=== PATIENT | male | born 1945 | race Caucasian/White ===

== ENCOUNTER 2025-07-26 09:31 | Outpatient (AMB) | payer MEDICARE, SELFPAY ==
--- NOTE | 2025-07-26 09:40 | A.PHYSOV ---
Vital Signs 07/26/25 09:41 Height 5 ft 9.5 in Weight 222 lb BMI 32.3 Intake Visit Reasons: 1M Intake Note: Patient is a 79 year old male in office for a 1 month visit on his neck and left shoulder pain. 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 The patient previously had excellent relief with C7 epidural injections, but the most recent procedure on March 20, 2025, provided very little benefit. The patient also has a history of left shoulder pain, for which past subacromial injections via a posterior approach did not provide relief. A left shoulder subacromial injection using an anterior approach on June 06, 2025, also did not significantly help the pain. The patient reports the pain is located at the point of the shoulder, sometimes extending slightly to the back. The pain is intermittent, occurring less than once or twice a day, but is very intense and can last for half an hour. Episodes are not related to movement or activity and can occur while resting. The patient is taking gabapentin, which prevents awakening from pain during the night. For acute pain episodes, the patient uses Tylenol and an ice pack. The patient has been using naproxen sparingly as advised and has a tramadol prescription from June 06, 2025, with some tablets remaining. The patient has been consistently taking a turmeric supplement. Pain Description - Location: Pain is located at the point of the left shoulder, with some radiation to the back. - Quality: The pain is described as very intense. - Frequency and Duration: The pain occurs intermittently, less than once or twice a day, and lasts for about half an hour per episode. - Exacerbating/Alleviating Factors: The pain is not related to movement or activity and can start while resting. - Associated Symptoms: At night, gabapentin prevents the patient from waking up due to pain. - Interventions: The patient uses Tylenol and an ice pack to alleviate the pain. - Prior Interventions: Recent cervical epidural and left shoulder subacromial injections provided little to no benefit. Results - Imaging: - A prior cervical spine MRI demonstrated neural foraminal stenosis at the C5-C6 and C6-C7 levels. [facility] Medical History (Updated 07/26/25 @ 11:54 by Rupesh Davila DO) Cervical radicular pain Left shoulder pain DJD of left shoulder Surgical History (Updated 07/26/25 @ 09:42 by Maria Fernanda Soria MA) LAP-BAND surgery status History of coronary artery stent placement Social History (Updated 07/22/25 @ 13:09 by Maria Fernanda Soria MA) Alcohol intake: current Alcohol intake frequency: holidays/special occasions only Patient Tobacco Use Status: Former Tobacco user Substance Use Type: Marijuana Current occupational status: unemployed Review of Systems Narrative Review of Systems - Musculoskeletal: Reports intermittent, intense pain at the point of the left shoulder, sometimes extending to the back. - Reports chronic neck pain. - Neurological: Reports cervical radiculitis. - Constitutional: Denies sleep disturbance from pain while taking gabapentin. Physical Exam Exam Exam: Physical Exam Patient appears to be in no acute distress, appropriately conversant and oriented. He ambulates without antalgia. Neurological examination of upper and lower extremities was nonfocal. Cervical range of motion was restricted and side bending, extension and rotation to the left. Spurling maneuver was negative. Lhermitte's sign was negative. Patient demonstrated no upper motor neuron signs. Neer sign was positive on the left side. Modified Witt maneuver was positive on the left side. Drop-arm test was negative. Shoulder apprehension test was negative. Vital Signs: BMI result Body Mass Index 32.3 Assessment & Plan Assessment & Plan (1) DJD of left shoulder: Code(s): M19.012 - Primary osteoarthritis, left shoulder Category: Medical Qualifiers: Osteoarthritis type: primary Qualified Code(s): M19.012 - Primary osteoarthritis, left shoulder (2) Left shoulder pain: Code(s): M25.512 - Pain in left shoulder Category: Medical Qualifiers: Chronicity: chronic Qualified Code(s): M25.512 - Pain in left shoulder; G89.29 - Other chronic pain (3) Cervical radicular pain: Code(s): M54.12 - Radiculopathy, cervical region Category: Medical Plan Pain Management - Analgesia: The patient reports intermittent, intense left shoulder pain despite prior injections. - Current Medications: The patient takes gabapentin for nocturnal pain, Tylenol as needed, and has used tramadol and naproxen sparingly. - Activities of Daily Living: Sleep is no longer interrupted by pain due to taking gabapentin. - Aberrant Drug-Related Behaviors: The patient has used tramadol sparingly, with tablets remaining from a prescription issued over a month ago. Plan Patient was informed and verbally consented to the use of an ambient scribe for clinic note documentation during this visit. 1. Chronic Left Shoulder Pain The patient continues to experience intermittent, intense left shoulder pain that has not responded to prior subacromial injections. The plan is to start topical Voltaren (diclofenac) gel three times a day and continue supplementation with turmeric 2000 mg daily, ensuring it contains black pepper. A prescription for tramadol will be refilled, with instructions written to allow for a larger quantity to be dispensed, though the patient is advised to continue using it sparingly. The patient will continue using Tylenol and ice packs as needed for acute pain. Follow-up is scheduled in 2-3 months. 2. Chronic Neck Pain With Cervical Radiculitis The patient has a history of chronic neck pain and cervical radiculitis secondary to neural foraminal stenosis, with nocturnal symptoms controlled by gabapentin. The plan is to continue gabapentin 100 mg, two tablets nightly. A prescription refill for gabapentin will be sent to the pharmacy. Follow-up will occur in 2-3 months to reassess symptoms. Discussion Notes I informed the patient that since the last shoulder injection provided little benefit, we would try a new approach. I recommended starting [id number] Voltaren gel, a topical anti-inflammatory, to be applied three times daily to the shoulder, and I advised the patient that a generic version (diclofenac gel) would be cheaper. We discussed continuing turmeric at a dose of 2000 mg daily, and I emphasized the importance of ensuring the supplement contains black pepper to aid absorption. I agreed to send refills for both tramadol and gabapentin. I explained that I would adjust the directions on the tramadol prescription to allow for a larger quantity to be dispensed, but that the patient should continue to use it sparingly as before. I expressed hope that with continued use of the topical gel and turmeric, future pain episodes may become less severe and resolve more quickly. We agreed on a follow-up appointment in 2-3 months. Patient Instructions - Continue taking your Turmeric supplement, 2000 mg per day. - Make sure the turmeric product you use contains black pepper. - Purchase Voltaren gel (or the generic version, diclofenac gel), which is available [id number] at the pharmacy. - Rub it on your shoulder where it hurts three times a day. - A refill for your pain medicine, Tramadol, will be sent to your pharmacy. - Continue to use it only as needed for severe pain. - A refill for your nerve medicine, Gabapentin, will be sent to your pharmacy. - Continue taking two capsules at night. - You can continue to use Tylenol and apply an ice pack for pain relief. - Schedule a follow-up appointment in two to three months. Medications: New tramadol Partial fill upon request 100 mg (2 x 50 mg) PO QID PRN 56 tabs 0RF pain M19.012 - Primary osteoarthritis, left shoulder, M25.512 - Pain in left shoulder, M54.12 - Radiculopathy, cervical region gabapentin 100 - 400 mg (1 - 4 x 100 mg) PO BEDTIME 120 caps 3RF Chronic pain 30 days M19.012 - Primary osteoarthritis, left shoulder, M25.512 - Pain in left shoulder, M54.12 - Radiculopathy, cervical region Coding Level of Care Code Est Pt Level 4 (13632) Complex visit Add On G2211 Diagnoses Primary osteoarthritis of left shoulder M19.012 Osteoarthritis type: primary Chronic left shoulder pain M25.512; G89.29 Chronicity: chronic Cervical radicular pain M54.12
[2025-07-26 09:41] VITALS: BMI 32.3
--- OUTSIDE RECORDS SUMMARY | 2025-07-26 10:38 | XMS_ITS | Clinical Summary ---
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 0 Active rosuvastatin (CRESTOR) tablet 10 mg Take 10 mg by mouth daily. 0 Active metFORMIN (GLUCOPHAGE) tablet 500 mg Take 500 mg by mouth 2 (two) times a day with meals. 0 Active chlorthalidone (HYGROTON) 25 MG tablet Take 25 mg by mouth daily. 0 Active omeprazole (PriLOSEC) 20 MG capsule Take 20 mg by mouth daily. 0 Active Multiple Vitamin (MULTI-VITAMINS PO) Take 1 tablet by mouth daily. 0 Active aspirin EC 81 MG tablet Take 81 mg by mouth daily. 0 Active glipiZIDE (GLUCOTROL) tablet 10 mg Take 10 mg by mouth 2 (two) times a day before breakfast and dinner. 0 Active Active Problems Problem Noted Date Diagnosed Date Cervical spinal stenosis 01/12/2021 Social History Tobacco Use Types Packs/Day Years Used Date Smoking Tobacco: Former Cigarettes Q uit: 01/09/1994 Smokeless Tobacco: Never Alcohol Use Standard Drinks/Week Comments Yes 0 (1 standard drink = 0.6 oz pur e alcohol) Sex and Gender Information Value Date Recorded Sex Assigned at Not on file Gender Identity Not on file Sexual Orientation Not on file Last Filed Vital Signs Vital Sign Reading Time Taken Comments Blood Pressure - - Pulse 70 01/11/2021 2:29 PM EDT Temperature - - Respiratory Rate - - Oxygen Saturation 95% 01/11/2021 2:29 PM EDT Inhaled Oxygen Concentration - - Weight 90.7 kg (200 lb) 01/09/2021 1:29 PM EDT Height 177.8 cm (5' 10 ) 01/09/2021 1:29 PM EDT Body Mass Index 28.7 01/09/2021 1:29 PM EDT Plan of Treatment Health Maintenance Due Date Last Done Comments Hepatitis C Screening 1945 COVID-19 Vaccine (#1) 06/29/1946 Depression Screening 1957 Preventative Health Evaluation 12/28/1965 Fall Risk Assessment 12/28/2012 Shingrix-Zoster Vaccine (2 of 2) 11/08/2020 09/13/2020 DTap / Tdap / Td (2 - Td or Tdap) 12/09/2021 12/10/2011 RSV Adult > 60+ Yrs or (1 - 1-dose 75+ series) 12/28/2022 Influenza Vaccine (#1) 2025 8, 06/10/2017, 06/06/2015, Additional history exists Pneumococcal Vaccine Completed 01/29/2015, 08/05/2013, 05/21/2004 Hepatitis B Vaccines Aged Out No long er eligible based on patient's age to complete this topic RSV Ped < 20 months Aged Out No longe r eligible based on patient's age to complete this topic
--- OUTSIDE RECORDS SUMMARY | 2025-07-26 10:38 | XMS_ITS ---
Author Name [facility] Organization Unknown Encounters Encounter Type Encounter Reason Primary Diagnosis Location Date Ambulatory [facility] 06/10/2024 Care Team Organization Name Specialty Phone Email Start Date End Da te [facility] [address] [facility] [place] [facility] 07/08/2022
--- OUTSIDE RECORDS SUMMARY | 2025-07-26 10:39 | XMS_ITS | Clinical Summary ---
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 023 Active blood-glucose meter (ACCU-CHEK BRITTANY PLUS METER [facility]) Use to check blood sugars three times a day 018 Active fluticasone propionate (FLONASE) 50 mcg/actuation nasal spray INHALE 1 SPRAY BY NASAL ROUTE DAILY. 013 Active multivitamin tablet 1 po qd Active NAPROXEN ORAL Take by mouth daily as needed. Active aspirin 81 mg EC tablet 1 TABLET DAILY Activ e cetirizine (ZyrTEC) 10 mg tablet 1 TABLET DAILY 007 Active ipratropium-alb uteroL (Combivent Respimat) 20-100 mcg/actuation inhalerIndicati ons:Chronic obstructive pulmonary disease, unspecified COPD type (CMS/HCC V24, CMS/HCC V28) Inhale 1 puff by mouth 4 (four) times a day. 3 g 4 025 2025 Active gabapentin (NEURONTIN) 100 mg capsule TAKE 1-4 TABLETS BY MOUTH EVERY NIGHT FOR 30 DAYS 025 Active blood sugar diagnostic ([employer] Verio test strips) test stripIndication s:Type 2 diabetes mellitus with diabetic neuropathy, unspecified ([facility] V24, [facility] V28) USE 1 STRIP TO TEST BLOOD 3 TIMES A DAY * NON INSULIN PER INSURANCE 100/90 DAYS 100 strip 5 025 Active glipiZIDE (GLUCOTROL XL) 10 mg 24 hr tablet Take 1 tablet (10 mg total) by mouth 1 (one) time each day. 90 tablet 1 025 Active metoprolol succinate (TOPROL-XL) 50 mg 24 hr tabletIndicatio ns:Pure hypercholestero lemia, unspecified Take 1 tablet (50 mg total) by mouth 1 (one) time each day. Do not crush or chew. 135 tablet 1 025 Active loperamide (IMODIUM) 2 mg capsule Take 1 capsule (2 mg total) by mouth 4 (four) times a day if needed for diarrhea. 30 capsule 1 025 Active umeclidinium (Incruse Ellipta) 62.5 mcg/actuation inhalation Inhale 1 puff by mouth 1 (one) time each day. 1 each 3 025 Active tiotropium (SPIRIVA) 18 mcg per inhalation capsule Place 1 capsule (18 mcg total) into inhaler and inhale 1 (one) time each day. 30 capsule 11 025 2025 Active Ozempic 0.25 mg or 0.5 mg (2 mg/3 mL) injection penIndications: Uncontrolled type 2 diabetes mellitus with hypoglycemia, unspecified hypoglycemia coma status ([facility] V24, [facility] V28) INJECT 0.25 MG SUBCUTANEOUSLY ONCE WEEKLY 3 mL 5 025 Active rosuvastatin (CRESTOR) 20 mg tablet TAKE 1 TABLET BY MOUTH EVERY DAY 90 tablet 1 025 Active rosuvastatin (CRESTOR) 20 mg tablet TAKE 1 TABLET BY MOUTH EVERY DAY 90 tablet 1 025 2024 Discontinued Active Problems Problem Noted Date Diagnosed Date Uncontrolled type 2 diabetes mellitus with hypoglycemia ([facility] V24, [facility] V28) 11/17/2024 Obstructive sleep apnea syndrome 09/13/2024 Belching 08/25/2024 Burping 08/25/2024 Esophageal dysmotility 08/25/2024 Gassiness 08/25/2024 Retching 08/25/2024 Dyspnea on exertion 11/07/2022 Overview (08/25/2024): Last Assessment & Plan: Was hospitalized in February 2022 at [facility] where he was given a presumptive diagnosis of CHF though in retrospect, my suspicion is that he had peripheral edema and COPD which was then verified by PFTs a month later; since he is not tolerating Lasix and there is no absolute indication for it and he is euvolemic on exam today, would discontinue daily Lasix and use only as needed for worsening lower extremity edema, weight gain greater than 3 pounds in 1 day or 5 pounds in 1 week Thoracic aortic aneurysm ([facility] V24) 3 Overview (08/25/2024): - See recent echo under coronary artery disease section - Most recent CT of the chest without contrast for lung nodules on did not comment on the ascending aorta and the report however I reviewed the images myself and got the ascending aorta maximal dimension of 4.1 x 3.9 cm and aortic root in the coronal imaging at 3.6 to 3.7 cm - The patient will have yearly surveillance CT scans for lung nodules which should also track the size of his aorta Last Assessment & Plan: Stable across multiple imaging modalities. Continue to follow with his periodic chest CTs to follow his pulmonary nodules Primary osteoarthritis of knees, bilateral 10/14 Cervical spinal stenosis 01/12/2021 Ganglion cyst of finger of left hand 09/12/2019 Irritable bowel syndrome with diarrhea 0 Cortical cataract of both eyes 09/29/2018 Macular RPE mottling 09/29/2018 Erectile dysfunction 10/09/2017 Atrial tachycardia ([facility] V24) 04/06/2017 Overview (08/25/2024): -Will have intermittent palpitations -Holter monitor monitor on 01/21/2017 revealing sinus rhythm with average heart rate 80 bpm with frequent APCs, a few atrial pairs, and occasional runs of paroxysmal atrial tachycardia lasting up to 8 minutes and 30 seconds with rates up to 160 bpm with rate related QRS widening-total supraventricular ectopy represented 8% of all beats, there were only occasional PVCs with a few couplets, no pauses, and no symptoms -Ultimately has been managed medically Last Assessment & Plan: No major palpitations recently, continue current metoprolol Adjustment disorder with anxiety 06/15/2014 Iron deficiency anemia 01/30/2014 DM (diabetes mellitus) type II controlled, neurological manifestation ([facility] V24, [facility] V28) 11/19/2012 Bloating 07/08/2012 Lung mass 02/16/2012 Overview (08/25/2024): CT scan 02/09 - f/u in 6-12 months Urolithiasis 03/28/2011 Overview (08/25/2024): Mosafavi; stone -right; mass/cyst -left Carpal tunnel syndrome, bilateral 10/03/2010 Hypertension 03/31/2006 Overview (08/25/2024): Discontinue daily Lasix Last Assessment & Plan: Well-controlled blood pressure on current dose beta-jolene. Continue his exercise and dietary modifications as means of controlling his blood pressure as well. 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 Coronary artery disease 09/05/2005 Overview (08/25/2024): -Acute myocardial infarction October 2003 while snow shoveling in [place]- initially received thrombolytics and was transferred to a tertiary care center in [place], [place] -Cardiac cath at that time showed normal left main, 30% mid LAD with no other significant LAD disease, normal left circumflex, and 90% proximal RCA disease which was treated with a bare-metal stent -Subsequent exercise nuclear stress test for shortness of breath symptoms in October 2017 showed the following: He exercised for 4-1/2 minutes with frequent PVCs at peak exercise with short runs of nonsustained VT with the longest being 8 beats, moderate dyspnea but no ischemic ECG changes with nuclear imaging showing large, inferior NH with minimal rober-infarct ischemia in the inferoseptal wall with an EF of 43% -He was treated with additional amlodipine to his antianginal regimen and increase of syrz-[id number] cath was considered at some point but he ended up going for emergent abdominal surgery so this was not pursued at the time -He was seen in follow-up in 03/2018-the last time we saw him-and at the time, his shortness of breath symptoms had completely resolved and therefore no changes were made -For recurrent possible anginal symptoms of progressive dyspnea on exertion, he had an updated pharmacologic nuclear stress test on 10/17/2021 which showed a large, severe fixed inferior and inferolateral defect suggestive of infarct without rober-infarct ischemia, hypokinesis in the inferior and inferolateral martinez but visually normal ejection fraction - At my follow-up visit with him, he actually reported that his symptoms had resolved with increasing exercise and therefore we did not do any antianginal escalation - Most recent echocardiogram from February 2022 showed mild, concentric left ventricular hypertrophy with normal LV cavity size and systolic function, normal regional wall motion with ejection fraction of 55 to 60%, mildly enlarged right ventricle with normal systolic function, no hemodynamically significant valve disease, dilated aortic root at 4.2 cm, ascending aorta at 4.1 cm, and transverse aorta at 3.1 cm Last Assessment & Plan: Patient does not have any anginal sounding chest discomfort. He walks regularly. His shortness of breath is stable and he relates it to his underlying lung disease. Continue his aspirin, beta-jolene and statin at current doses. He will notify us of any changes in his condition Assessment & Plan (09/20/2024 11:55 AM EST): Under control on aspirin and metoprolol. Orders: CBC and differential; Future Comprehensive metabolic panel; Future Lipid panel with reflex to direct LDL; Future Thyroid stimulating hormone; Future Hemoglobin A1c; Future Hyperlipidemia 09/05/2005 Overview (08/25/2024): Last Assessment & Plan: Well-controlled lipid profile on current dose statin. Continue Immunizations Immunization Administration Dates Next Due COVID-19 (Pfizer/Comirnaty) 12yo and older 05/19/2023 Influenza Quadravalent, 0.5m l (Fluad) 65yo and older 05/19/2023 Influenza Quadravalent, 0.5m l (Fluzone High-dose) 65yo and older 06/28/2022 Influenza Quadravalent, MDCK , 0.5ml, preservative free (Flucelvax) 6mo and older 07/19/2018 Influenza Quadravalent, esdras mbinant, 0.5ml, preservative free (Flublok) 18yo and older 06/14/2020 Influenza trivalent, 0.5mL ( Fluad) 65yo and older 05/19/2023,07/24/2021,06/10/2017 Influenza trivalent, 0.5mL ( Fluzone High-dose) 65yo and older 07/02/2024,07/24/2021,06/22/2019,06/10 Influenza trivalent, 0.5mL, preservative free (Fluarix; FluLaval; Fluzone) ages 6mo and older (Afluria) 3 years and older 06/06/2015,08/29/2014,08/05/2013,06/02,08/03/2008,07/15/2007,06/23/2006 ,09/05/2005 Influenza trivalent, with pr eservative (Fluzone; Afluria) 6mo and older 06/06/2015,08/29/2014,08/05/2013,06/02,08/03/2008,07/15/2007,06/23/2006 ,09/05/2005 Pfizer SARS-CoV-2 COVID-19, mRNA, LNP-S, preservative free 04/14/2024,05/19/2023 Pneumococcal conjugate 13 va lent (Prevnar 13, PCV13) 2mo and older 01/29/2015 Pneumococcal polysaccharide 23 valent (Pneumovax 23) 2yo and older 08/05/2013,05/21/2004 RSV, bivalent, protein subun it RSVpreF, 0.5mL, Preservative Free (Arexvy) 50yo and older 09/16/2023 Respiratory syncytial virus (RSV), unspecified 09/16/2023 Td, Unspecified 03/05/2004 Tdap Tetanus diptheria acell ular pertussis (Boostrix; Adacel) 7yo and older 12/16/2023,12/10/2011 Zoster Live 01/23/2012 Zoster recombinant (Shingrix ) 19yo and older 03/12/2021,09/13/2020 Surgical History Surgery Date Site/Laterality Comments LAPAROSCOPIC GASTRIC BANDING 03/27/06 PROCEDURE: LAP ADJUSTABLE GASTRIC BAND; COMMENT: Fialo OTHER SURGICAL HISTORY 06/05 PROCEDURE: CHG ASSAY OF PROSTATE SPECIFIC ANTIGEN FREE; COMMENT: 0.2 COLONOSCOPY 12/04 PROCEDURE: NJ COLONOSCOPY STOMA DX INCLUDING COLLJ SPEC SPX; COMMENT: Mary; mendel COLONOSCOPY 10/31/2013 PROCEDURE: NJ COLONOSCOPY STOMA DX INCLUDING COLLJ SPEC SPX; COMMENT: mendel; repeat in ten yrs ESOPHAGOGASTRODUODENOSCOPY 10/31/13 PROCEDURE: NJ ESOPHAGOGASTRODUODENOSCOPY TRANSORAL DIAGNOSTIC; COMMENT: benign appearing tight stricture at GE junction through which I could not pass scope ESOPHAGOGASTRODUODENOSCOPY 01/30/14 PROCEDURE: NJ EGD TRANSORAL BIOPSY SINGLE/MULTIPLE; COMMENT: esophageal diverticulum; lap band; normal duodenal biopsies Medical History Medical History Date Comments Other and unspecified hyperlipidemia 09/05/2005 DX:Other and unspecified hyperlipidemia Coronary atherosclerosis of unspecified type of vessel, sleetmute or graft 09/05/2005 DX:Coronary atherosclerosis of unspecified type of vessel, sleetmute or graft; COMMENT: [place] 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 DX :Postgastric surgery syndromes Type II or unspecified type diabetes mellitus with unspecified complication, not stated as uncontrolled DX:Type II or unspecified ty pe diabetes mellitus with unspecified complication, not stated as uncontrolled; COMMENT: dm x3 yrs no am read avg am read 6 mo-1yr 95-130 Essential hypertension, benign 03/31/2006 D X:Essential hypertension, benign Carpal tunnel syndrome, bilateral 10/03/2010 DX:Carpal tunnel syndrome, bilateral Urolithiasis 03/28/2011 DX:Urolithiasis Acute medial meniscal injury of knee 08/2019 DX:Acute medial meniscal injury of knee; COMMENT: Left knee Esophageal reflux DX:Esophageal reflux Irritable bowel syndrome DX:Irri table bowel syndrome Burping DX:Burping Belching DX:Belching Gassiness DX:Gassiness Status post gastric surgery DX:S tatus post gastric surgery; COMMENT: Lap band added in 2005 and removed in 2018 Anxiety state DX:Anxiety state Depressive disorder DX:Depressiv e disorder Primary osteoarthritis of kn ees, bilateral 10/14/2021 DX:Primary osteoarthritis of knees, bilateral Retching DX:Retching Esophageal dysmotility DX:Esopha geal dysmotility Family History Medical History Relation Name Comments No Known Problems Aunt No Known Problems Brother Heart attack Father No Known Problems Maternal Grandfather No Known Problems Maternal Grandmother No Known Problems Mother No Known Problems Other No Known Problems Paternal Grandfather No Known Problems Paternal Grandmother No Known Problems Sister No Known Problems Uncle Blindness Neg Hx Cataracts Neg Hx Glaucoma Neg Hx Macular degeneration Neg Hx Strabismus Neg Hx Relation Name Status Comments Aunt Brother Father Maternal Grandfather Maternal Grandmother Mother Other Paternal Grandfather Paternal Grandmother Sister Uncle Social History Tobacco Use Types Packs/Day Years Used Date Smoking Tobacco: Former Cigarettes 0.8 Q uit: 08/31/1991 Passive Smoke Exposure: Never Smokeless Tobacco: Never Tobacco Cessation:Counseling Given: Not Answered Alcohol Use Standard Drinks/Week Comments Yes 0 (1 standard drink = 0.6 oz pur e alcohol) Sex and Gender Information Value Date Recorded Sex Assigned at Male 10/10/2024 4:15 PM EST Legal Sex Male 7:26 AM EST Gender Identity Male 10/10/2024 4:15 PM EST Sexual Orientation Straight 10/10/2024 4: 15 PM EST Obstetrics History Last Filed Vital Signs Vital Sign Reading Time Taken Comments Blood Pressure 131/86 04/13/2025 8:10 AM EDT Pulse 73 04/13/2025 8:10 AM EDT Temperature 36.3 C (97.4 F) 04/13/2025 8:10 AM EDT Respiratory Rate 16 04/13/2025 8:10 AM EDT Oxygen Saturation 96% 04/13/2025 8:10 AM EDT Inhaled Oxygen Concentration - - Weight 103 kg (226 lb 9.6 oz) 04/13/2025 8:10 AM EDT Height 177.8 cm (5' 10 ) 04/13/2025 8:10 AM EDT Body Mass Index 32.51 04/13/2025 8:10 AM EDT Plan of Treatment Upcoming Encounters Date Type Department Care Team (Late st Contact Info) Description 08/02/2025 10:00 AM EST Office Visit Orthopedic Surgery - [place] [address] [facility] [address] [place] [address] Julianne Reyes NP [address] [facility] [address] [place] [address] 10/12/2025 9:45 AM EST Office Visit Pulmonology - [place] [address] [facility] [address] [place] [phone] Kim Hand MD [address] [place] [address] Health Maintenance Due Date Last Done Comments Diabetes: Annual Foot Exam 12/28/1955 Social Influencers of Health Screening 08/09/2022 Diabetes: Annual Retina Eye Exam 01/04/2025 01/05/2024 Diabetes: Blood Sugar Control Test (HGBA1C) 07/09/2025 01/06/2025, 09/26/2024, 02/19/2024, Additional history exists Falls Risk Assessment 09/20/2025 09/20/2024, 025 Medicare Annual Wellness Visit 09/20/2025 09/20/2024 COVID-19 Vaccine ( season) 2025 05/20/2025, 04/14/2024, 05/19/2023, Additional history exists Diabetes: Annual Urine Albumin-Creatinine Ratio (uACR) 01/06/2026 01/06/2025, 05/01/2022 Diabetes: Annual GFR (Glomerular Filtration Rate) 01/06/2026 01/06/2025, 09/26/2024, 02/19/2024, Additional history exists Hypertension/CHF/CAD Annual BMP Blood Test 01/06/2026 01/06/2025, 09/26/2024, 02/19/2024, Additional history exists Cholesterol Screening (Lipid Panel) 09/26/2029 09/26/2024, 02/19/2024, 02/19/2024 DTaP,Tdap,and Td Vaccines (4 - Td or Tdap) 12/15/2033 12/16/2023, 12/10/2011, 03/05/2004 Hepatitis C Screening Completed 07/29/2013 Pneumococcal Vaccine: 50+ Years Completed 01/29/2015, 08/05/2013, 05/21/2004 Zoster Vaccines Completed 03/12/2021, 08/31, 01/23/2012 RSV Immunization Adult Patients Completed 09/16/2023, 09/16/2023 RSV Immunization Patients Under 20 months Aged Out 09/16/2023 No longer eligible based on patient's age to complete this topic Depression Screening Completed 09/20/2024 Influenza Vaccine Completed 05/20/2025, , 05/19/2023, Additional history exists HIB Vaccines Aged Out No longer eligi ble based on patient's age to complete this topic HPV Vaccines Aged Out No longer eligi ble based on patient's age to complete this topic Hepatitis A Vaccines Aged Out No long er eligible based on patient's age to complete this topic Hepatitis B Vaccines Aged Out No long er eligible based on patient's age to complete this topic IPV Vaccines Aged Out No longer eligi ble based on patient's age to complete this topic MMR Vaccines Aged Out No longer eligi ble based on patient's age to complete this topic Meningococcal ACWY Vaccine Aged Out N o longer eligible based on patient's age to complete this topic Meningococcal B Vaccine Aged Out No l onger eligible based on patient's age to complete this topic Varicella Vaccines Aged Out No longer eligible based on patient's age to complete this topic Procedures Procedure Name Priority Date/Time Associated Diagnosis Comments MICROALBUMIN CREATININE URINE RATIO Routine 01/06/2025 12:05 PM EDT Uncontrolled type 2 diabetes mellitus with hypoglycemia, unspecified hypoglycemia coma status ([facility] V24, [facility] V28) COMPREHENSIVE METABOLIC PANEL Routine 01/06/2025 12:05 PM EDT Uncontrolled type 2 diabetes mellitus with hypoglycemia, unspecified hypoglycemia coma status (CMS/HCC V24, [facility] V28) Hyperlipidemia, unspecified hyperlipidemia type Primary hypertension HEMOGLOBIN A1C Routine 01/06/2025 12:05 PM EDT Uncontrolled type 2 diabetes mellitus with hypoglycemia, unspecified hypoglycemia coma status ([facility] V24, [facility] V28) LIPID PANEL WITH REFLEX TO DIRECT LDL Routine 09/26/2024 7:33 AM EST Primary hypertension Type 2 diabetes mellitus without complication, without long-term current use of insulin ([facility] V24, [facility] V28) Hypercholesterolemia Coronary artery disease involving sleetmute coronary artery of sleetmute heart, unspecified whether angina present DIABETES EYE EXAM Routine 01/05/2024 HEPATITIS C SCREENING Routine 07/29/2013 from Last 3 Months or Most Recently Relevant to Health Maintenance Results * (ABNORMAL) Microalbumin creatinine urine ratio (01/06/2025 12:05 PM EDT) Creatinine, Urine 61.0 mg/dL LAB CHEMISTRY METHOD 01/06/2025 4:06 PM EDT [facility] Microalb, Ur 55.2(H) 0.0 - 29.0 mg/L LAB CHEMISTRY METHOD 01/06/2025 4:06 PM EDT [facility] Microalb/Crea t Ratio 90(H) <30 mg/g creat LAB CHEMISTRY METHOD 01/06/2025 4:06 PM EDT [facility] Urine Urine specimen obtained by clean catch procedure / Unknown Non-blood Collection / Unknown 01/06/2025 12:05 PM EDT 01/06/2025 12:05 PM EDT us Shelley [facility] LAB URINE ORDERABLES Final Resul t [facility] [address] [place] [address], * (ABNORMAL) Hemoglobin A1c (01/06/2025 12:05 PM EDT) [facility] Hemoglobin A1C 7.6(H) <6.5 % LAB CHEMISTRY METHOD 01/06/2025 6:59 PM EDT [facility] Mean Bld Glu Estim. 171 mg/dL LAB CHEMISTRY METHOD 01/06/2025 6:59 PM T [facility] Blood Venous blood specimen / Unknown Venipuncture / Unknown 01/06/2025 12:05 PM EDT 01/06/2025 12:05 PM EDT us Shelley [facility] LAB BLOOD ORDERABLES Final Resul t [facility] [address] [place] [address], [place] [phone] * (ABNORMAL) Comprehensive metabolic panel (01/06/2025 12:05 PM EDT) [facility] Sodium 138 133 - 145 mmol/L LAB CHEMISTRY METHOD 01/06/2025 6:32 PM [facility] Potassium 4.2 3.5 - 5.5 mmol/L LAB CHEMISTRY METHOD 01/06/2025 6:32 PM [facility] Chloride 103 96 - 110 mmol/L LAB CHEMISTRY METHOD 01/06/2025 6:32 PM [facility] CO2 28 21 - 32 mmol/L LAB CHEMISTRY METHOD 01/06/2025 6:32 PM [facility] Anion Gap 7 3 - 11 LAB CHEMISTRY METHOD 01/06/2025 6:32 PM [facility] Glucose 123(H) 70 - 100 mg/dL LAB CHEMISTRY METHOD 01/06/2025 6:32 PM [facility] BUN 14 5 - 25 mg/dL LAB CHEMISTRY METHOD 01/06/2025 6:32 PM [facility] Creatinine 0.70 0.70 - 1.30 mg/dL LAB CHEMISTRY METHOD 01/06/2025 6:32 PM [facility] eGFR 95 >=60 mL/min/1. 73m2 LAB CHEMISTRY METHOD 01/06/2025 6:32 PM [facility] Comment:Calculation based on the Chronic Kidney Disease Epidemiology Collaboration (CKD-EPI) equation refit without adjustment for race. BUN/Creatinine Ratio 20.0 LAB CHEMISTRY METHOD 01/06/2025 6:32 PM [facility] Calcium 9.1 8.5 - 10.5 mg/dL LAB CHEMISTRY METHOD 01/06/2025 6:32 PM [facility] AST (SGOT) 23 10 - 42 unit/L LAB CHEMISTRY METHOD 01/06/2025 6:32 PM [facility] ALT (SGPT) 37 10 - 60 unit/L LAB CHEMISTRY METHOD 01/06/2025 6:32 PM [facility] Alkaline Phosphatase 85 42 - 121 unit/L LAB CHEMISTRY METHOD 01/06/2025 6:32 PM [facility] Total Protein 6.2 6.0 - 8.0 g/dL LAB CHEMISTRY METHOD 01/06/2025 6:32 PM [facility] Albumin 3.8 3.2 - 5.0 g/dL LAB CHEMISTRY METHOD 01/06/2025 6:32 PM [facility] Total Bilirubin 0.8 0.0 - 1.4 mg/dL LAB CHEMISTRY METHOD 01/06/2025 6:32 PM [facility] Blood Venous blood specimen / Unknown Venipuncture / Unknown 01/06/2025 12:05 PM EDT 01/06/2025 12:05 PM EDT us Shel[facility] LAB BLOOD ORDERABLES Final Resul t [facility] [address] [place] [address], [place] [phone] * Lipid panel with reflex to direct LDL (09/26/2024 7:33 AM EST) Pathologist [facility] Cholesterol 163 0 - 200 mg/dL LAB CHEMISTRY METHOD 09/26/2024 11:30 AM EST [facility] Triglycerides 138 0 - 150 mg/dL LAB CHEMISTRY METHOD 09/26/2024 11:30 AM EST [facility] HDL 83 >=40 mg/dL LAB CHEMISTRY METHOD 09/26/2024 11:30 AM EST [facility] LDL Calculated 52 0 - 100 mg/dL LAB CHEMISTRY METHOD 09/26/2024 11:30 AM EST [facility] VLDL Cholesterol Gianni 27.6 mg/dL LAB CHEMISTRY METHOD 09/26/2024 11:30 AM EST [facility] Non HDL Chol. (LDL+VLDL) 80 <145 mg/dL LAB CHEMISTRY METHOD 09/26/2024 11:30 AM EST [facility] [facility] Chol/HDL Ratio 2.0 0.0 - 4.4 LAB CHEMISTRY METHOD 09/26/2024 11:30 AM [facility] Blood Venous blood specimen / Unknown Venipuncture / Unknown 09/26/2024 7:33 AM EST 09/26/2024 7:33 AM EST us Marco Norman MD LAB BLOOD ORDERABLES Final Resul t [facility] [address] [place] [address], [place] [phone] * Diabetes Eye Exam (01/05/2024) Pathologist [facility] Diabetes: Annual Retina Eye Exam Abstracted Historical Provider HEALTH MAINTENANCE Final Result * Hepatitis C Screening (07/29/2013) [facility] Hepatitis C Screening Abstracted Fernando Cesar MD HEALTH MAINTENANCE Final Result from Last 3 Months or Most Recently Relevant to Health Maintenance Insurance [employer] - [place] MEDICARE ADVANTAGE Care Teams [employer] Relationship Specialty Start Date End Date Marco Norman MD [address] [address] PCP - General 10/29/22
== END 2025-07-26 10:17 | disposition home or self-care (01) ==
LOC: HO.HPHYS 09:31
PROVIDERS: PCP Internal Medicine; Visit Provider Physical Medicine & Rehabilitation
DX: M19.012 Primary osteoarthritis, left shoulder (principal); M25.512 Pain in left shoulder; G89.29 Other chronic pain; M54.12 Radiculopathy, cervical region
CPT/HCPCS: 99214; G2211

== ENCOUNTER → 2025-07-26 09:31 | Outpatient (BNVA) | payer MEDICARE, SELFPAY | PROVIDERS: PCP Internal Medicine; Visit Provider Physical Medicine & Rehabilitation | DX: M19.012 Primary osteoarthritis, left shoulder (principal); M54.12 Radiculopathy, cervical region; M54.2 Cervicalgia; M25.512 Pain in left shoulder; G89.29 Other chronic pain | CPT/HCPCS: 99212 ==